=== PATIENT | male | born 1980 | race African-American/Black ===

== ENCOUNTER 2020-01-01 20:58 | Emergency (ER) | payer SELFPAY ==
[2020-01-01 21:18] LABS: BASO # 0.1 x10^3/uL (0.0-0.2); BASO % 1 % (0-3); EOS # 0.1 x10^3/uL (0.0-0.7); EOS % 1 % (0-3); HEMATOCRIT 42.4 % (39.0-53.0); LYMPH # 2.9 x10^3/uL (1.0-4.8); LYMPH % 27 % (24-48); MEAN CORPUSCULAR HEMOGLOBIN 29 pg (25-35); MEAN CORPUSCULAR HGB CONC 33 g/dL (31-37); MEAN CORPUSCULAR VOLUME 87 fL (79-100); MONO # 0.9 x10^3/uL (0.0-1.1); MONO % 8 % (0-9); NEUT # 6.8 x10^3/uL (1.8-7.7); NEUT % 64 % (31-73); PLATELET COUNT 221 x10^3/uL (140-400); RED BLOOD COUNT 4.86 x10^6/uL (4.30-5.70); RED CELL DISTRIBUTION WIDTH 13.1 % (11.5-14.5); WHITE BLOOD COUNT 10.7 x10^3/uL (4.0-11.0)
[2020-01-01 21:24] LABS: CALCIUM 9.6 mg/dL (8.5-10.1); CREATININE 1.3 mg/dL (0.7-1.3); GFR 75.2; POTASSIUM 3.3 mmol/L (3.5-5.1)
[2020-01-01 21:25] LABS: PROTHROMBIN TIME PATIENT 13.8 SEC (11.7-14.0)
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
[2020-01-01] MEDS ORDERED: MORPHINE SULFATE 2 MG/ML VIAL. IV ONE (22:00)
[2020-01-01] MEDS ORDERED: MORPHINE SULFATE 4 MG/ML VIAL. IV ONE (22:00)
[2020-01-01] MEDS ORDERED: ONDANSETRON PF 4 MG/2 ML VIAL. IV ONE (22:00)
[2020-01-01] MEDS ORDERED: IV RINGERS,LACTATED 1000ML 1,000 ML IV SCH (22:00)
[2020-01-01] MEDS ORDERED: AMOX1TAB61 PO (22:37)
[2020-01-01] MEDS ORDERED: HYDR-3164 PO (22:37)
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
== END 2020-01-01 22:44 | disposition home or self-care (01) ==
LOC: EEVIPCON 20:58 → ER 20:58
DX: S71.132A Puncture wound without foreign body, left thigh, initial encounter (principal); W34.09XA Accidental discharge from other specified firearms, initial encounter; Y93.89 Activity, other specified; Y92.89 Other specified places as the place of occurrence of the external cause; Y99.8 Other external cause status
CPT/HCPCS: 36415; 73552; 80048; 85025; 85610; 85730; 86850; 86900; 86901; 96361; 96365; 96375; 96376; 99285; J0696; J2270; J2405; J7120